=== PATIENT | male | born 1955 | race Two or more races ===

== ENCOUNTER → 2017-07-11 | Emergency (ER) | payer OTHER ==
[~2017-07-11] VITALS: Ht 170.2 cm; Wt 99.8 kg
[~2017-07-11] MED LIST: ASPIR 8181 MG; DIOVAN HCT 3201 EACH; NORVASC5 MG; VYTORIN 10-401 EACH
== END | disposition home or self-care (01) ==
LOC: ER 00:15
DX: R20.0 Anesthesia of skin (principal)

== ENCOUNTER 2017-08-19 07:05 | Outpatient (CLI) | payer OTHER | END 2017-08-19 07:19 | disposition home or self-care (01) | LOC: RAD 07:05 | DX: D12.0 Benign neoplasm of cecum (principal); C18.0 Malignant neoplasm of cecum; Z86.010 Personal history of colon polyps; K92.1 Melena ==

== ENCOUNTER 2021-01-28 15:00 | Outpatient (CLI) | payer OTHER | END 2021-01-28 15:16 | disposition home or self-care (01) | LOC: RAD 15:00 | DX: M47.892 Other spondylosis, cervical region (principal); M62.830 Muscle spasm of back ==

== ENCOUNTER 2022-01-04 20:11 | Emergency (ER) | payer OTHER ==
[~2022-01-04] VITALS: Ht 170.2 cm; Wt 102.1 kg
[2022-01-04] MEDS ORDERED: CLONAZEPAM0.5 MG (21:21)
== END 2022-01-05 00:40 | disposition home or self-care (01) ==
LOC: ER 20:11
DX: F41.9 Anxiety disorder, unspecified (principal); I10 Essential (primary) hypertension; Z91.013 Allergy to seafood

== ENCOUNTER 2022-08-08 13:19 | Outpatient (CLI) | payer OTHER ==
[~2022-08-08 13:19] MED LIST changes: +CLONAZEPAM0.5 MG
== END 2022-08-08 13:28 | disposition home or self-care (01) ==
LOC: RAD 13:19
DX: R05.9 Cough, unspecified (principal)

== ENCOUNTER → 2024-01-09 | Emergency (ER) | payer OTHER ==
[~2024-01-09] VITALS: Ht 170.2 cm; Wt 88.5 kg
[~2024-01-09] MED LIST changes: +ACETAMINOPHEN 500 MG GEL..CAP PO PRN; +AMIODARONE HCL 50 MG/ML AMPUL IV ONE; +AMLODIPINE BESYLATE 2.5 MG TABLET PO SCH; +ASPIRIN 81 MG TAB.CHEW PO SCH; +ATORVASTATIN CALCIUM 40 MG TABLET PO SCH; +FAMOTIDINE/PF 20 MG in 0.9 % SODIUM CHLORIDE 8 ML IV PUSH SCH; +METOPROLOL SUCCINATE 25 MG TAB.SR.24H PO SCH; +ONDANSETRON HCL 2 MG/ML VIAL IV STA; +ONDANSETRON HCL 4 MG in 0.9 % SODIUM CHLORIDE 50 ML IV PRN; +PROMETHAZINE HCL 50 MG/ML AMPUL IM ONE; +RINGERS SOLUTION,LACTATED 1,000 ML IV SCH
[2024-01-09 22:11] LABS: HEMATOCRIT 43.7 % (39.0-48.0); HEMOGLOBIN 15.1 g/dL (13-16.00); MEAN CELL VOLUME 87.7 fL (80.0-100.00); MEAN CORPUSCULAR HEMOGLOBIN 30.4 pg (27.00-32.0); MEAN CORPUSCULAR HGB CONC 34.6 g/dl (32.0-36.0); PLATELET COUNT 323 K/uL (150-450); RED BLOOD COUNT 4.98 M/uL (4.00-6.00); RED CELL DISTRIBUTION WIDTH 13.7 % (11.5-14.5)
[2024-01-09 22:11] LABS: URINE APPEARANCE Clear; URINE BILIRRUBIN Negative (NEGATIVE); URINE BLOOD Small; URINE COLOR Dark Yellow; URINE GLUCOSE Negative (NEGATIVE); URINE LEUKOCYTE Negative; URINE NITRATE Negative; URINE PROTEIN 30 (NEGATIVE)
[2024-01-09 22:15] LABS: URINE BACTERIA 83.1 uL (0.0-1933); URINE EPITHELIAL CELLS 10.3 uL (0.0-38.8); URINE RBC 320.8 uL (0.0-20.8); URINE WBC 2.7 uL (0.0-23.2)
[2024-01-09 22:30] LABS: INR 1.1; PARTIAL THROMBOPLASTIN TIME 27.1 SECONDS (22.0-34.0); PROTHROMBIN TIME 11.5 SECONDS (9.0-11.5)
[2024-01-09 22:35] LABS: ALBUMIN 3.8 gm/dL (3.4-5.0); BILIRUBIN TOTAL 0.43 mg/dL (0.3-1.2); CALCIUM 8.3 mg/dL (8.5-10.1); CREATININE SERUM 0.9 mg/dL (0.70-1.30); GFR 84.17; GLOBULINA 3.4 G/DL (2.4-3.5); POTASSIUM 3.2 mEq/L (3.5-5.1); TOTAL PROTEIN 7.2 gm/dL (6.4-8.2)
[2024-01-09 22:37] LABS: TROPONIN I hs < 3.0 PG/ML (42.2-82.3); proBNP 32 pg/mL (0-219.4)
== END | disposition left against medical advice (07) ==
LOC: ER 18:33
PROVIDERS: General Practice
DX: I63.89 Other cerebral infarction (principal); G45.8 Other transient cerebral ischemic attacks and related syndromes; I48.91 Unspecified atrial fibrillation; G81.90 Hemiplegia, unspecified affecting unspecified side; Z20.822 Contact with and (suspected) exposure to COVID-19; Z91.013 Allergy to seafood
CPT/HCPCS: 36415; 70450; 71045; 93005; 93041; 96365; 99284; J2405; J3490 ×2

== ENCOUNTER 2024-02-29 14:26 | Outpatient (CLI) | payer OTHER ==
[~2024-02-29 14:26] MED LIST changes: -ACETAMINOPHEN 500 MG GEL..CAP PO PRN; -AMIODARONE HCL 50 MG/ML AMPUL IV ONE; -AMLODIPINE BESYLATE 2.5 MG TABLET PO SCH; -ASPIRIN 81 MG TAB.CHEW PO SCH; -ATORVASTATIN CALCIUM 40 MG TABLET PO SCH; -FAMOTIDINE/PF 20 MG in 0.9 % SODIUM CHLORIDE 8 ML IV PUSH SCH; -METOPROLOL SUCCINATE 25 MG TAB.SR.24H PO SCH; -ONDANSETRON HCL 2 MG/ML VIAL IV STA; -ONDANSETRON HCL 4 MG in 0.9 % SODIUM CHLORIDE 50 ML IV PRN; -PROMETHAZINE HCL 50 MG/ML AMPUL IM ONE; -RINGERS SOLUTION,LACTATED 1,000 ML IV SCH
== END 2024-02-29 14:39 | disposition home or self-care (01) ==
LOC: SONOGRAMA 14:26
PROVIDERS: ATTEND Internal Medicine
DX: M25.512 Pain in left shoulder (principal); M25.511 Pain in right shoulder; M79.671 Pain in right foot; I10 Essential (primary) hypertension; E78.00 Pure hypercholesterolemia, unspecified; E66.09 Other obesity due to excess calories

== ENCOUNTER 2024-11-07 14:36 | Outpatient (CLI) | payer OTHER | END 2024-11-07 14:41 | disposition home or self-care (01) | LOC: RAD 14:36 | PROVIDERS: ATTEND Ophthalmology | DX: R07.89 Other chest pain (principal) ==

== ENCOUNTER 2025-01-09 07:53 | Outpatient (CLI) | payer OTHER | END 2025-01-09 08:23 | disposition home or self-care (01) | LOC: TOM 07:53 | DX: R19.5 Other fecal abnormalities (principal) | CPT/HCPCS: 74177; Q9965 ==